=== PATIENT | male | born 1945 | race Caucasian/White ===

== ENCOUNTER 2021-08-09 12:05 | Inpatient (IN) | payer OTHER ==
--- OUTSIDE RECORDS SUMMARY | 2021-08-09 12:10 | XMS REPORT | Continuity of Care Document ---
:1945 Author Organization [facility] t Address [address] [place] [address] Care Team Providers Name Role Phone RE JAFFE Primary Care Physician Unavailable DRAIN LAYER, STAFF Attending Clinician Unavailable Levon GREEN Attending Clinician Unavailable RE JAFFE Attending Clinician Unavailable JON Attending Clinician Unavailable Danna Attending Clinician Unavailable SALVADOR Attending Clinician Unavailable DR ADEEL Attending Clinician Unavailable JON Admitting Clinician Unavailable Danna Admitting Clinician Unavailable DR ADEEL Admitting Clinician Unavailable Payers Payer Name Policy Type Policy Number Effective Date Expiration Date S keke [id number] 1959 00:00:00 [id number] 1959 00:00:00 [id number] Advance Directives Directive Decision Effective Date Termination Date Comments Sour ce Yes N/A [facility] Problems Condition Condition Condition Status Onset Resolution Last Treating Co mments Source Name Details Category Date Date Treatment Clinician Date 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 Spinal Problem Active [facility] stenosis S of lumbar Health region Postoperat Problem Active ARLEY TU alanna wound S infection Health Infection Problem Active MARILIN U following S procedure Health 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 Health (CVA) Hypertensi Problem Inactiv CH[facility] T[facility]IKA on e S Health Allergies, Adverse Reactions, Alerts Allergy Allergy Status Severity Reaction(s) Onset Inactive Treating Comm ents Source Name Type Date Date Clinician No Known DA Active U 2018-06 [facility] 0[facility] [place] NO KNOWN Allergy Active Unknown MARILIN U ALLERGY to 4-04 S substanc 00:00: Health e 00 No Known DA Active U 2005-06 [facility] Contrast [place] [facility] 00:[facility]: [facility] No Known DA Active U 2005-06 [facility] [place] [facility] 00:[facility]: [facility] No Known DA Active U 2005-06 [facility] Food [place] [facility]ergie 00:00: [facility] No Known DA Active U 2005-06 [facility] Other [place] [facility]ergie 00:00: [facility]ope [facility] No Known DA Active U [facility] 11-21 [place] [facility] 00:[facility]: [facility]ope [facility] dic Hospita l NO KNOWN Drug Active [facility]ERGIE Class [facility] No Known DA Active [facility] (LUF/LI V/SA) Social History Social Habit Start Date Stop Date Quantity Comments Source Sex Ass[birth year] At [birth year] Male [facility] 00:00:00 00:00:00 Smoking Status Start Date Stop Date Source Smokes tobacco daily (finding) 2019-10-25 22:23:00 [facility] [employer] Medications Ordered Filled Start Stop Current Ordering Indication Dosage Frequency Signature Comments Components Source Medication Medication Date Date Medication? Clinician (SIG) Name Name Gabapentin No 600mg Bedtime (Neurontin) S 600 Mg TAB Health Methocarbam No 750mg Three MARILIN U ol Times A S (Robaxin) Day as Health 750 Mg needed for TABLET Spasms Metoprolol No 25mg Bedtime MARILIN U Succinate S (Toprol Xl) Health 25 Mg TABSR Pravastatin No 20mg Every [facility] Sodium Evening S (Pravachol) Health 20 Mg TAB Qysimia No 1 Daily for [facility]RI[facility]U Cardiologi S st Diet Health Pill Vital Signs Vital Name Observation Time Observation Value Comments Source Weight 2019-10-27 00:00:00 110.3 KG Body Temperature 2019-10-26 01:18:00 98.4 [degF] [employer] Heart Rate 2019-10-26 01:18:00 65 /min [employer] Respiratory rate 2019-10-26 01:18:00 18 /min [employer] BP Systolic 2019-10-26 01:18:00 138 mm[Hg] [facility] BP Diastolic 2019-10-26 01:18:00 74 mm[Hg] [facility] Heart Rate 2019-10-26 00:48:00 65 /min [facility] Respiratory rate 2019-10-26 00:48:00 18 /min [employer] BP Systolic 2019-10-26 00:48:00 138 mm[Hg] [facility] BP Diastolic 2019-10-26 00:48:00 74 mm[Hg] [facility] Weight 2019-10-25 21:59:00 252.25 [lb_av] [facility] BMI (Body Mass Index) 2019-10-25 21:59:00 37.3 kg/m2 [facility] Procedures Procedure Date / Time Performed Performing Clinician [facility] e ECG (electrocardiogram) 2019-10-25 00:00:00 [employer] Computed tomography of 2019-10-25 00:00:00 [facility] head or brain without contrast X-ray of chest, single 2019-10-25 00:00:00 [facility] view Encounters Start End Encounter Admission Attending Care Care Encounter Source Date/Time Date/Time Type Type Clinicians Facility Department ID 2020-03-12 Inpatient EL DRAIN LAYER CYNTHIA MARIE [id number] [facility] 12:30:00 NON [id number] S [facility] 2019-10-25 Inpatient PETER CYNTHIA MARIE [id number] [facility] 21:50:00 ALLIE [id number] S Health 2021-08-03 2021-08-03 Outpatient EL LDCYNTHIA [id number] [facility] 08:52:00 08:52:00 SHEWANA [id number] [facility] 2019-10-26 2019-10-26 Outpatient 2 TAMIKA WEBB OBT [id number] 12:51:00 12:51:00 KALIN aquino (NGUYEN/JOHNNIE V/SA) 2019-10-25 2019-10-26 Departed KAYLIN Orantes [id number] [facility] 21:50:00 01:18:[address] 2019-10-22 2019-10-22 Outpatient Raju_P MMG MMG [id number] [place] 04:59:00 04:59:00 [facility] 2019-09-17 2019-09-17 Outpatient R SALVADOR, [facility] [id number] Q-20 Univers 10:00:00 10:00:00 CRISTINA [id number] ity [facility] 2010-03-08 2010-03-[address] [id number] 09:52:00 23:59:00 CRISTINA aquino (LUF/LI V/SA) Results Test Description Test Time Test Comments Results Result Comments Source [facility] 2019-10-27 05:16:00 Test Item Value Reference Range Interpretation Comme nts Sodium (test code = NA) 138 mmol/l 137-145 Potassium (test code = K) 4.6 mmol/l 3.5-5.1 Chloride (test code = CL) 106 mmol/l 98-107 Calcium (test code = 8.1 mg/dl 8.5-10.1 L CALC) CO2 (test code = CO2) 26 mmol/l 21-32 Glucose (test code = GLU) 153 mg/dl 74-106 H BUN (test code = BUN) 17.0 mg/dl 7.0-18.0 Creatinine (test code = 1.2 mg/dl 0.5-1.3 CREA) EGFR if >60 mL/min/1.73m\\S\\2 (test code = EGFRAA) EGFR if Non- >60 mL/min/1.73m\\S\\2 Estimated Glomerular Algerian (test code = Filtra tion Rate (eGFR) EGFRNA) Reference Inter vals Decision Points for 18 y ears and older and avera ge body mass: >= 60 Does not exclu de kidney disease. 30 - 5 9 Suggests modera te chronic kidney disease and indicates the need for fu rther investigation i ncluding assessment of p roteinuria and ca rdiovascular factors. < 30 Usually indicat es a need for referral for as sessment and management of c hronic kidney failure. CORONARY [id number] 05:16:00 Test Item Value Reference Range Interpretation Comments Triglycerides (test 80 mg/dl 0-149 Trig. In terpretation code = TRIG) Guide: Nor mal: < 150 mg/dl Borderline High : 150 - 199 mg/dl High: 200 - 499 mg/dl Very High: >= 5 00 mg/dl Cholesterol (test code 130 mg/dl 0-200 = CHOL) HDL (test code = HDL) 42 mg/dl 35-86 dLDL (test code = 80 mg/dl 0-99 Direct LDL DILDL) Intrepretations : Optimal: <100 mg/dl Suspect: 100 - 129 mg/dl Border line: 130 - 159 mg/dl High: 160 - 189 mg/dl Very High: >1 90 mg/dl Risk Factor (test code 3.1 0.0-5.0 Risk Factor = RFACT) Men Women R isk Factor 3.4 3.3 1/ 2 Average 5.0 4.4 Average 9.6 7.1 2X Average 24.0 11.0 3X Average vLDL (test code = 16 mg/dl 20-50 L VLDL) CBC (HEMOGRAM ONLY)2019-10-27 04:28:00 Test Item Value Reference Range Interpretation Comments WBC (test code = 7.76 10\\S\\3/ul 4.80-10.80 WBC) RBC (test code = 5.00 10\\S\\6/ul 4.70-6.10 RBC) Hemoglobin (test 16.0 gm/dl 14.0-18.0 code = HGB) Hematocrit (test 48.7 % 42.0-50.0 code = HCT) MCV (test code = 97.4 fL 80.0-94.0 H MCV) MCH (test code = 32.0 pg 27.0-31.0 H MCH) MCHC (test code = 32.9 gm/dl 33.0-37.0 L MCHC) RDW (test code = 15.4 % 11.5-14.5 H RDWVC) Platelet (test code 193 10\\S\\3/ul 130-400 = PLT) MPV (test code = 10.9 fL 7.4-10.4 A "NOT MEASUR ED" MPV) RESULTS ARE DIS PLAYED WHEN THE INSTRU MENT HAS A SUPPRESSE D OR UNREPORTABLE RE SULT. THIS WILL MOST OFTEN HAPPEN WITH THE MPV WHEN THERE IS A N ABNORMAL PLATEL ET DISTRIBUTION DU E TO A CRITICAL LOW VA LUE OR PLATELET CLUMPI NG. THE RDW MAY BE SUPPRESSED IF T HERE ARE MULTIPLE PE AKS PRESENT ON THE RBC HISTOGRAM. IN THIS CASE, A MANUAL REVIEW OF THE SLIDE WI LL BE PERFORMED, AND RBC MORPHOLOGY WILL BE NOTED ON THE RE PORT. MRA HEAD W/O [id number] 10:20:07If patient is claustrophobic, contact ordering physician for additional instructions.Procedure: MRA HEAD W/O CONTRASTOrder Date: 10/26/2019 3:12 AMOrdering Provider: [facility] Indication: [id number]: Cerebrovascular accidentComparison: Carotid ultrasound 10/26/2019Technique:3-D [id number]-si-[id number] MRA of the brain was obtained without theadministration of IV contrast.Findings:The right petrous, cavernous, and supraclinoid internal carotid artery segmentsare patent. There is loss of flow related signal seen throughout the leftinternal carotid artery compatible with occlusion.There is reconstitution ofthe ak chin of [place]. Left type SCENE PAINTER circulation is noted.The anterior cerebral arteries are patent without stenosis.The middle cerebral arteries are patent without stenosis.The posterior cerebral arteries are patent without stenosis.The distal vertebral and basilar arteries have a normal appearance.The superior cerebellar arteries are patent without stenosis.There is no intracranial aneurysm. There is no arteriovenous shunting.Impression:1. 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 Otherwise, unremarkableintracranial MR angiogram.This final report was elec tronically signed by Dr Brooklyn Chavez MD 10/26/201910:13 AMDictated By: BROOKLYN CHAVEZDate: 10/26/2019 10:13MRI BRAIN W/O [id number] 10:12:46If patient is claustrophobic, contact ordering physician for additional instructions.Procedure: MRI BRAIN W/O CONTRASTOrder Date: 10/26/2019 3:12 AMOrdering Provider: KALIN Pinto Indication: Left-sided facial weakness, CVAComparison: NoneTechnique: Multiplanar MRI of the brain was obtained without the administrationof IV contrast.Findings:T2/FLAIR signal abnormality seen in the bihemispheric white matter, nonspecificyet most likely microvascular ischemic change. There is also global parenchymalvolume loss.Ventricular size and configuration are normal. There is no midlineshift orhydrocephalus.There is no evidence of an acute infarct. There is no parenchymal hemorrhage.The pituitary gland is normal in size. There are no pineal masses.Loss of the left internal carotid artery flow void compatible with occlusion.The foramen magnum is normal.There is normal signal within the paranasal sinuses.The orbits are intact.IMPRESSION:1. Nonacute MRI of the brain without the administration of IV contrast.2. Microvascular ischemic change with global parenchymal volume loss.3. Loss of normal flow void seen within the distal left internal carotid or truesuggestive of occlusion.This final report was electronically signed by Dr Brooklyn Chavez MD 10/26/201910:06 AMDictated By: BROOKLYN CHAVEZDate: 10/26/2019 10:06US CAROTID BILAT [id number] 09:55:54Procedure: US CAROTID BILAT DopplerOrder Date: 10/26/2019 3:13 AMOrdering Provider: KALIN COLINlinical Indication: Left ICA occlusion. CVAComparison: NoneTECHNIQUE : Real-time cerebrovascular ultrasonography was obtained from sternalnotch to the angle of the mandible bilaterally utilizing osuna scale, color flowand spectral Doppler analysis. Systolic velocity ratios were calculated forinternal carotid artery to common carotid artery bilaterally.FINDINGS:RIGHT CAROTID BIFURCATION: Mild atherosclerotic plaque. Peak systolic andend-diastolic velocities in the right internal carotid artery are withinnormallimits. Internal carotid/common carotid ratio is within normal limits. Rightvertebral flow is antegrade.LEFT CAROTID BIFURCATION: Extensive atherosclerotic plaque. Occlusion of theleft ICA. Left vertebral flow is antegrade.IMPRESSION:1. Extensive atherosclerotic plaque at the left carotid bifurcation withcomplete occlusion of the left ICA. Mild atherosclerotic plaque in right carotidbulb and ICA origin.2. There is no significant stenosis (16- 49%) at right ICA origin.3. Bilateral antegrade vertebral artery flow.This final report was electronically signed by Dr Brooklyn Chavez MD 10/26/20199:49 AMDictated By: BROOKLYN CHAVEZDate: 10/26/2019 09:49GLYCOSALATED HEMOGLOBIN 2019-10-26 06:08:00 Test Item Value Reference Range Interpretation Comments Hemoglobin A1C (test 6.0 % 4.2-6.3 A code = GLYCO) Mean Plasma Glucose 136 mg/dl 90-180 WHEN BRIAN T RESULTS FOR (test code = MPG) A1C EXCEED 14.0, THE LINEAR LIMIT OF THE INSTRUMENT, THE CALCULATED RESU LT FOR THE MEAN GLUCOS E IS NOT RELIABLE. CORONARY [id number] 05:28:00 Test Item Value Reference Range Interpretation Comments Triglycerides (test 81 mg/dl 0-149 Trig. In terpretation code = TRIG) Guide: Nor mal: < 150 mg/dl Borderline High : 150 - 199 mg/dl High: 200 - 499 mg/dl Very High: >= 5 00 mg/dl Cholesterol (test code 117 mg/dl 0-200 = CHOL) HDL (test code = HDL) 38 mg/dl 35-86 dLDL (test code = 69 mg/dl 0-99 Direct LDL DILDL) Intrepretations : Optimal: <100 mg/dl Suspect: 100 - 129 mg/dl Border line: 130 - 159 mg/dl High: 160 - 189 mg/dl Very High: >1 90 mg/dl Risk Factor (test code 3.1 0.0-5.0 Risk Factor = RFACT) Men Women R isk Factor 3.4 3.3 1/ 2 Average 5.0 4.4 Average 9.6 7.1 2X Average 24.0 11.0 3X Average vLDL (test code = 16 mg/dl 20-50 L VLDL) [id number] 05:28:00 Test Item Value Reference Range Interpretation Comments Sodium (test code = 138 mmol/l 137-145 NA) Potassium (test 3.7 mmol/l 3.5-5.1 code = K) Chloride (test code 107 mmol/l 98-107 = CL) Calcium (test code 7.8 mg/dl 8.5-10.1 L = CALC) CO2 (test code = 26 mmol/l 21-32 CO2) Glucose (test code 108 mg/dl 74-106 H = GLU) BUN (test code = 17.0 mg/dl 7.0-18.0 BUN) Creatinine (test 1.1 mg/dl 0.5-1.3 code = CREA) T Protein (test 6.5 gm/dl 6.4-8.2 code = TP) Albumin (test code 3.5 gm/dl 3.4-5.0 = ALB) A/G Ratio (test 1.2 % 1.1-2.2 code = AGRAT) AST (SGOT) (test 14 U/L 15-37 L code = AST) ALT (SGPT) (test 21 U/L 13-61 code = ALT) Alkaline Phos (test 77 U/L 45-117 code = ALKP) Total Bilirubin 0.4 mg/dl 0.2-1.0 (test code = TBIL) Globulin (test code 3.0 gm/dl 2.3-3.5 = GLOBU) Calcium, Corrected 8.2 mg/dl 8.4-10.2 L Various f ormulas exist (test code = for corrected s rina CALCCORR) calcium results , each yielding differ ent values. This corrected resul t was based on the fo rmula: Corrected Calci um = SerumCalcium + [0.8 * ( 4 - SerumAlbu min)] EGFR if >60 Algerian (test code mL/min/1.73m\\ = EGFRAA) S\\2 EGFR if Non- >60 Estimate d Glomerular Algerian (test code mL/min/1.73m\\ Filtrat ion Rate (eGFR) = EGFRNA) S\\2 Reference Inter vals Decision Points for 18 years and older and average body ma ss: >= 60 Does not exc lude kidney disease. 30 - 59 Suggests modera te chronic kidney disease and indicat es the need for furthe r investigation including asses sment of proteinuria and cardiovascular factors. < 30 Usually in dicates a need for refe rral for assessment and management of c hronic kidney failure. CBC WITH AUTO [id number] 04:51:00 Test Item Value Reference Range Interpretation Comments WBC (test code = 5.52 10\\S\\3/ul 4.80-10.80 WBC) RBC (test code = 4.69 10\\S\\6/ul 4.70-6.10 L RBC) Hemoglobin (test 14.9 gm/dl 14.0-18.0 code = HGB) Hematocrit (test 46.0 % 42.0-50.0 code = HCT) MCV (test code = 98.1 fL 80.0-94.0 H MCV) MCH (test code = 31.8 pg 27.0-31.0 H MCH) MCHC (test code = 32.4 gm/dl 33.0-37.0 L MCHC) RDW (test code = 15.8 % 11.5-14.5 H RDWVC) Platelet (test code 166 10\\S\\3/ul 130-400 = PLT) MPV (test code = 11.6 fL 7.4-10.4 A "NOT MEASUR ED" MPV) RESULTS ARE DIS PLAYED WHEN THE INSTRU MENT HAS A SUPPRESSE D OR UNREPORTABLE RE SULT. THIS WILL MOST OFTEN HAPPEN WITH THE MPV WHEN THERE IS A N ABNORMAL PLATEL ET DISTRIBUTION DU E TO A CRITICAL LOW VA LUE OR PLATELET CLUMPI NG. THE RDW MAY BE SUPPRESSED IF T HERE ARE MULTIPLE PE AKS PRESENT ON THE RBC HISTOGRAM. IN THIS CASE, A MANUAL REVIEW OF THE SLIDE WI LL BE PERFORMED, AND RBC MORPHOLOGY WILL BE NOTED ON THE RE PORT. NE% (test code = 59.9 % 42.0-75.0 NE) LY% (test code = 26.4 % 13.0-42.0 LY) MO% (test code = 8.3 % 4.0-14.0 MO) EO% (test code = 4.2 % 1.0-5.0 EO) BA% (test code = 0.7 % 0.0-3.0 BA) IG% (test code = 0.5 % 0.0-0.4 H IG%) Automated blood basophil count as percentage of total [id number] 22:00:00 Test Item Value Reference Range Interpretation Comments Basophils (%) (Auto) (test code = 0 % 0-1 706-2) [facility] (number/volume)2019-10-25 22:00:00 Test Item Value Reference Range Interpretation Comments Neutrophils # (Auto) (test code = 4.1 10*3/uL 1.3-6.7 751-8) [facility] count (number/volume)2019-10-25 22:00:00 Test Item Value Reference Range Interpretation Comments Lymphocytes # (Auto) (test code = 1.5 10*3/uL 1.4-4.1 731-0) [facility] monocytes automated count (number/volume)2019-10-25 22:00:00 Test Item Value Reference Range Interpretation Comments Monocytes # (Auto) (test code = 0.5 10*3/uL 0-1.3 742-7) [facility] eosinophil [id number] 22:00:00 Test Item Value Reference Range Interpretation Comments Eosinophils # (Auto) (test code = 0.2 10*3/uL 0-0.8 711-2) [facility] HealthAutomated blood basophil count (number/volume)2019-10-25 22:00:00 Test Item Value Reference Range Interpretation Comments Basophils # (Auto) (test code = 0.0 10*3/uL 0-0.1 704-7) [facility] comment [id number] 22:00:00 Test Item Value Reference Range Interpretation Comments Manual Differential (test code = Not Ind 8265-1) [facility] HealthProthrombin time (PT) in platelet poor [id number] 22:00:00 Test Item Value Reference Range Interpretation Comments Prothrombin Time (test code = 5902-2) 12.0 s 9.4-12.5 [facility] HealthINR in Platelet poor plasma by Coagulation [id number] 22:00:00 Test Item Value Reference Range Interpretation Comments Prothromb Time International 1.0 {ratio} 0.8-1.2 Ratio (test code = 6301-6) [facility] HealthPlasma partial thromboplastin time (PTT)2019-10-25 22:00:00 Test Item Value Reference Range Interpretation Comments Activated Partial Thromboplast Time 31.2 s 25.1-36.5 (test code = 14617-3) [facility] HealthSerum or plasma sodium measurement (moles/volume)2019-10-25 22:00:00 Test Item Value Reference Range Interpretation Comments Sodium Level (test code = 2951-2) 140 mmol/L 136-145 [facility] HealthSerum or plasma potassium measurement (moles/volume)2019-10-25 22:00:00 Test Item Value Reference Range Interpretation Comments Potassium Level (test code = 3.9 mmol/L 3.5-5.1 2823-3) [facility] HealthSerum or plasma chloride measurement (moles/volume)2019-10-25 22:00:00 Test Item Value Reference Range Interpretation Comments Chloride Level (test code = 106 mmol/L 98-107 5-0) [facility] HealthSerum or plasma total carbon dioxide measurement (moles/volume) 2019-10-25 22:00:00 Test Item Value Reference Range Interpretation Comments Carbon Dioxide Level (test code = 24 mmol/L -2027-) [facility] HealthSerum or plasma anion gap determination (moles/volume)2019-10-25 22:00:00 Test Item Value Reference Range Interpretation Comments Anion Gap (test code = 55851-6) 14 8-18 [facility] HealthSerum or plasma urea nitrogen measurement (mass/volume)2019-10-25 22:00:00 Test Item Value Reference Range Interpretation Comments Blood Urea Nitrogen (test code = 17 mg/dL 02-04 3094-0) [facility] HealthSerum or plasma creatinine measurement (mass/volume)2019-10-25 22:00:00 Test Item Value Reference Range Interpretation Comments Creatinine (test code = 2160-0) 1.2 mg/dL 0.7-1.3 [facility] HealthGFR estimate [id number] 22:00:00 Test Item Value Reference Range Interpretation Comments Estimat Glomerular Filtration Rate 63 50-100 (test code = 21405-5) [facility] HealthSerum or plasma urea nitrogen/creatinine mass [id number] 22:00:00 Test Item Value Reference Range Interpretation Comments BUN/Creatinine Ratio (test code = 14 3097-3) [facility] HealthSerum or plasma glucose measurement (mass/volume)2019-10-25 22:00:00 Test Item Value Reference Range Interpretation Comments Glucose Level (test code = 2345-7) 140 mg/dL 60-100 [facility] HealthOsmolality of Serum or Plasma by [id number] 22:00:00 Test Item Value Reference Range Interpretation Comments Calculated Osmolality (test code 283 mosm/kg = 27307-6) [facility] HealthSerum or plasma calcium measurement (mass/volume)2019-10-25 22:00:00 Test Item Value Reference Range Interpretation Comments Calcium Level (test code = 77530-1) 8.8 mg/dL 8.8-10.0 [facility] HealthSerum or plasma total bilirubin measurement (mass/volume) 2019-10-25 22:00:00 Test Item Value Reference Range Interpretation Comments Total Bilirubin (test code = 0.4 mg/dL 0.2-1.2 1974-2) [facility] HealthSerum or plasma aspartate aminotransferase measurement (enzymatic activity/volume)2019-10-25 22:00:00 Test Item Value Reference Range Interpretation Comments Aspartate Amino Transf (AST/SGOT) 15 U/L 5-34 (test code = 1920-8) [facility] HealthSerum or plasma alanine aminotransferase measurement (enzymatic activity/volume)2019-10-25 22:00:00 Test Item Value Reference Range Interpretation Comments Alanine Aminotransferase (ALT/SGPT) 17 U/L 0-55 (test code = 1742-6) [facility] HealthSerum or plasma protein measurement (mass/volume)2019-10-25 22:00:00 Test Item Value Reference Range Interpretation Comments Total Protein (test code = 2885-2) 6.9 g/dL 5.8-7.6 [facility] HealthSerum or plasma albumin measurement (mass/volume)2019-10-25 22:00:00 Test Item Value Reference Range Interpretation Comments Albumin (test code = 1751-7) 4.1 g/dL 3.2-4.7 [facility] HealthSerum globulin measurement by calculation (mass/volume)2019-10-25 22:00:00 Test Item Value Reference Range Interpretation Comments Globulin (test code = 88993-4) 2.8 g/dL [facility] HealthSerum or plasma albumin/globulin mass [id number] 22:00:00 Test Item Value Reference Range Interpretation Comments Albumin/Globulin Ratio (test code = 1.5 1759-0) [email or web address] HealthSerum or plasma alkaline phosphatase measurement (enzymatic activity/volume)2019-10-25 22:00:00 Test Item Value Reference Range Interpretation Comments Alkaline Phosphatase (test code = 76 U/L 40-150 6768-6) [facility] HealthCreatine kinase ser/[id number] 22:00:00 Test Item Value Reference Range Interpretation Comments Total Creatine Kinase (test code = 187 U/L 30-200 2157-6) [facility] [[email or web address] HealthSerum or plasma cardiac troponin I measurement (mass/volume) 2019-10-25 22:00:00 Test Item Value Reference Range Interpretation Comments Troponin I (test code = 07961-6) 0.01 ng/mL 0.00-0.03 [facility] leukocyte count (number/volume)2019-10-25 22:00:00 Test Item Value Reference Range Interpretation Comments White Blood Count (test code = 6.4 10*3/uL 4.5-11.5 6690-2) [facility] erythrocytes automated count (number/volume)2019-10-25 22:00:00 Test Item Value Reference Range Interpretation Comments Red Blood Count (test code = 4.90 10*6/uL 4.4-6.2 789-8) [facility] HealthBlood hemoglobin measurement (mass/volume)2019-10-25 22:00:00 Test Item Value Reference Range Interpretation Comments Hemoglobin (test code = 718-7) 15.6 g/dL 13.0-17.5 [facility] HealthAutomated blood hematocrit (volume fraction)2019-10-25 22:00:00 Test Item Value Reference Range Interpretation Comments Hematocrit (test code = 4544-3) 47.1 % 39.0-52.5 [facility] HealthAutomated erythrocyte mean corpuscular volume (MCV) measurement 2019-10-25 22:00:00 Test Item Value Reference Range Interpretation Comments Mean Corpuscular Volume (test code = 96.1 fL 80-94 787-2) [facility] HealthAutomated erythrocyte mean corpuscular hemoglobin (mass per erythrocyte)2019-10-25 22:00:00 Test Item Value Reference Range Interpretation Comments Mean Corpuscular Hemoglobin (test 31.8 pg 27.0-33.0 code = 785-6) [facility]ated erythrocyte mean corpuscular hemoglobin concentration measurement (mass/vjw1603-12-64 22:00:00 Test Item Value Reference Range Interpretation Comments Mean Corpuscular Hemoglobin Concent 33.1 g/dL 33.0-37.0 (test code = 786-4) [facility]ated erythrocyte distribution width [id number] 22:00:00 Test Item Value Reference Range Interpretation Comments Red Cell Distribution Width (test code 16.7 % 10.7-14.5 = 788-0) [facility]Automated blood platelet count (count/volume)2019-10-25 22:00:00 Test Item Value Reference Range Interpretation Comments Platelet Count (test code = 164 10*3/uL 150-450 777-3) [facility]Automated blood platelet mean volume [id number] 22:00:00 Test Item Value Reference Range Interpretation Comments Mean Platelet Volume (test code = 11.3 fL 5.7-10.7 74353-1) [facility]Automated blood neutrophil count as percentage of total qebudabbzu5715-53-65 22:00:00 Test Item Value Reference Range Interpretation Comments Neutrophils (%) (Auto) (test code = 64 % 47-75 770-8) [facility] blood lymphocyte count as percentage of total qwsqajnsgw6624-35-36 22:00:00 Test Item Value Reference Range Interpretation Comments Lymphocytes (%) (Auto) (test code = 24 % 25-44 736-9) [facility]ated blood monocyte count as percentage of total leukocytes 2019-10-25 22:00:00 Test Item Value Reference Range Interpretation Comments Monocytes (%) (Auto) (test code = 8 % 3-10 5905-5) [facility]Automated blood eosinophil count as percentage of total qtkenhhxfh0258-98-30 22:00:00 Test Item Value Reference Range Interpretation Comments Eosinophils (%) (Auto) (test code = 4 % 0-7 713-8) [facility] specimen collection [id number] 00:22:00 Test Item Value Reference Range Interpretation Comments Urine Source (test code = 20291-6) URINE [facility] HealthColor of Urine by [id number] 00:22:00 Test Item Value Reference Range Interpretation Comments Urine Color (test code = 04256-0) Lt Yellow Yel-Soila * [facility] HealthUrine clarity [id number] 00:22:00 Test Item Value Reference Range Interpretation Comments Urine Appearance (test code = 68941-6) Clear Clear * [facility] HealthUrine pH measurement by automated test [id number] 00:22:00 Test Item Value Reference Range Interpretation Comments Urine pH (test code = 53744-7) 5.5 5.0-8.0 [facility] HealthSpecific gravity of Urine by Automated test [id number] 00:22:00 Test Item Value Reference Range Interpretation Comments Urine Specific [place] (test code = 1.020 1.005-1.030 13194-9) [facility] HealthUrine protein measurement by automated test strip (mass/volume) 2019-10-25 00:22:00 Test Item Value Reference Range Interpretation Comments Urine Protein (test code = 53545-2) 10 mg/dL Negative * [facility] HealthUrine glucose measurement by automated test strip (mass/volume) 2019-10-25 00:22:00 Test Item Value Reference Range Interpretation Comments Urine Glucose (UA) (test code Negative mg/dL Negative * = 78005-5) [facility]rine ketones measurement by automated test strip (mass/volume) 2019-10-25 00:22:00 Test Item Value Reference Range Interpretation Comments Urine Ketones (test code = Trace mg/dL Negative * 04315-7) [facility]rine erythrocytes count by automated test strip (number/volume) 2019-10-25 00:22:00 Test Item Value Reference Range Interpretation Comments Urine Occult Blood (test code = Trace Negative * 21980-1) [facility] HealthUrine nitrite detection by automated test [id number] 00:22:00 Test Item Value Reference Range Interpretation Comments Urine Nitrite (test code = 64026-4) Negative Negative [facility] HealthUrine total bilirubin measurement by automated test strip (mass/volume)2019-10-25 00:22:00 Test Item Value Reference Range Interpretation Comments Urine Bilirubin (test code = Negative mg/dL Negative 45120-8) [facility] urobilinogen measurement by automated test strip (mass/volume)2019-10-25 00:22:00 Test Item Value Reference Range Interpretation Comments Urine Urobilinogen (test code Negative mg/dL 0.0-1.0 = 12448-0) [facility] leukocytes count by automated test strip (number/volume) 2019-10-25 00:22:00 Test Item Value Reference Range Interpretation Comments Urine Leukocyte Esterase Negative {Maria Eugenia}/uL Negative (test code = 31796-2) [facility] HealthMicroscopic examination of [id number] 00:22:00 Test Item Value Reference Range Interpretation Comments Microscopic Urinalysis (T) (test code = ----- 77361-3) [facility] sediment erythrocyte count by microscopy (number/high power field)2019-10-25 00:22:00 Test Item Value Reference Range Interpretation Comments Urine RBC (test code = 32330-1) 0-2 /[HPF] 0-2 [facility]rine sediment leukocyte count by microscopy (number/high power field)2019-10-25 00:22:00 Test Item Value Reference Range Interpretation Comments Urine WBC (test code = 5821-4) 0-5 /[HPF] 0-5 [facility] HealthUrine sediment epithelial cell count by microscopy (number/high power field)2019-10-25 00:22:00 Test Item Value Reference Range Interpretation Comments Urine Epithelial Cells (test None Seen /[HPF] Few code = 5787-7) [facility] HealthUrine sediment crystal count by microscopy (number/high power field)2019-10-25 00:22:00 Test Item Value Reference Range Interpretation Comments Urine Crystals (test code = None Seen /[HPF] None * 29750-4) [facility] HealthUrine sediment bacteria count by microscopy (number/high power field)2019-10-25 00:22:00 Test Item Value Reference Range Interpretation Comments Urine Bacteria (test code = Few /[HPF] None 5769-5) [facility] HealthUrine sediment casts count by microscopy (number/low power field) 2019-10-25 00:22:00 Test Item Value Reference Range Interpretation Comments Urine Casts (test code = None Seen /[LPF] None * 9842-6) [facility] HealthYeast detection in urine sediment by light [id number] 00:22:00 Test Item Value Reference Range Interpretation Comments Urine Yeast (test code = None Seen /[HPF] None 47412-2) [facility] comment 00:22:00 Test Item Value Reference Range Interpretation Comments Urinalysis Comment (test * See_Comment [A utomated message] The code = 8262-8) system which generated this result tra nsmitted reference range : *. The reference range was not used to interpr et this result as normal/abnormal . [facility] [id number] 07:05:00 Test Item Value Reference Range Interpretation Comments HEMOGLOBIN (test code = HGB) 10.9 g/dL 10.2-14.9 N HEMATOCRIT (test code = HCT) 35.2 % 31.3-44.8 N HGB [id number] 07:05:00 Test Item Value Reference Range Interpretation Comments HEMOGLOBIN (test code = HGB) 10.9 g/dL 10.2-14.9 HEMATOCRIT (test code = HCT) 35.2 % 31.3-44.8 BASIC METABOLIC [id number] 09:17:00 Test Item Value Reference Range Interpretation Comments SODIUM (test code = 140 mEq/L 135-145 NA) POTASSIUM (test code = 4.4 mEq/L 3.5-5.0 K) CHLORIDE (test code = 106 mEq/L 100-115 CL) CARBON DIOXIDE (test 22 mEq/L 22-31 code = CO2) GLUCOSE (test code = 107 mg/dL 65-110 GLU) BLOOD UREA NITROGEN 25 mg/dL 7-18 H (test code = BUN) GLOMERULAR FILTRATION 59.0 ml/min >60 L Unit o f measure: RATE (test code = GFR) mL/mi n/1.73 [id number] Range:Healthy A dults >90 mL/min/1.73 m2 For Chronic Kidney Disease: St age II Mild Dec rease in GFR 6 0-90 Stage III Moderate Decrea se in GFR 30-59 Stage IV Se lanny Decrease in GFR 15-29 Stage V Kidney Failur e <15 CREATININE (test code 1.2 mg/dL 0.7-1.3 = CREAT) CALCIUM (test code = 6.8 mg/dL 8.4-10.2 L CA) BASIC METABOLIC [id number] 09:17:00 Test Item Value Reference Range Interpretation Comments SODIUM (test code = NA) 140 mEq/L 135-145 N POTASSIUM (test code = K) 4.4 mEq/L 3.5-5.0 N CHLORIDE (test code = CL) 106 mEq/L 100-115 N CARBON DIOXIDE (test code = CO2) 22 mEq/L 22-31 N GLUCOSE (test code = GLU) 107 mg/dL 65-110 N BLOOD UREA NITROGEN (test code = 25 mg/dL 7-18 H BUN) GLOMERULAR FILTRATION RATE (test 59 ml/min >60 L code = GFR) CREATININE (test code = CREAT) 1.2 mg/dL 0.7-1.3 N CALCIUM (test code = CA) 6.8 mg/dL 8.4-10.2 L HGB [id number] 06:47:00 Test Item Value Reference Range Interpretation Comments HEMOGLOBIN (test code = HGB) 10.6 g/dL 12-16 L HEMATOCRIT (test code = HCT) 32.7 % 37-47 L - XR SPINE 1 V SPEC [id number] 10:47:00 Patient Name: LAURYN MEJIA Unit No: [id number] EXAMS: CPT CODE: [id number] XR SPINE 1 V SPEC LEVEL 50481 INTRAOPERATIVE LATERAL LUMBAR SPINE Film 1. A surgical instrument is posterior to L3-4. Film 2. Anterior and posterior fusion has been performed from L3 to S1. at 1047 Reported and signed by: Tacos Amaral MD CC: Brigido Sanders M.D. Technologist: RT NEERU(R) Transcribed D/ (7272) MalissaJCL [facility] NAME: LAURYN MEJIA [address] [facility] PHYS: Shaquille Cisneros MD : 1945 AGE: 73 SEX: M [place] [address] LOC: Y.520 A PHONE #: [phone] EXAM DATE: 04/18/2019 STATUS: ADM IN FAX #: [phone] RAD #: [id number] D/C DT PAGE 1 Signed Report Patient Name: LAURYN MEJIA Unit No: [id number] EXAMS: CPT CODE: [id number] XR SPINE 1 V SPEC LEVEL 24923 <Continued> Orig Print D/T: S: 04/19/2019 (1050) [facility] NAME: LAURYN MEJIA [address] [facility] PHYS: Shaquille Cisneros MD : 1945 AGE: 73 SEX: M [place] [address] LOC: Y.520 A PHONE #: [phone] EXAM DATE: 04/18/2019 STATUS: ADM IN FAX #: [phone] RAD #: [id number] D/C DT PAGE 2 Signed Report- XR SPINE 1 V SPEC [id number] 10:47:00 Patient Name: LAURYN MEJIA Unit No: [id number] EXAMS: CPT CODE: [id number] XR SPINE 1 V SPEC LEVEL 02488 INTRAOPERATIVE LATERAL LUMBAR SPINE Film 1. A surgical instrument is posterior to L3-4. Film 2. Anterior and posterior fusion has been performed from L3 to S1. at 1047 Reported and signed by: Tacos Amaral MD CC: Brigido Sanders M.D. Technologist: RUMA SANTANA, RT(R) Transcribed D/ (1047) RudyL [facility] NAME: LAURYN MEJIA [address] [facility] PHYS: Shaquille Cisneros MD : 1945 AGE: 73 SEX: M [place], [place] [address] LOC: Y.520 A PHONE #: [phone] EXAM DATE: 04/18/2019 STATUS: ADM IN FAX #: [phone] RAD #: [id number] D/C DT PAGE 1 Signed Report Patient Name: LAURYN MEJIA Unit No: [id number] EXAMS: CPT CODE: [id number] XR SPINE 1 V SPEC LEVEL 30732 <Continued> Orig Print D/T: S: 04/19/2019 (1050) [facility] NAME: LAURYN MEJIA [address] [facility] PHYS: Shaquille Cisneros MD : 1945 AGE: 73 SEX: M [place] [address] LOC: Y.520 A PHONE #: [phone] EXAM DATE: 04/18/2019 STATUS: ADM IN FAX #: [phone] RAD #: [id number] D/C DT PAGE 2 Signed ReportBASI METABOLIC [id number] 06:39:00 Test Item Value Reference Range Interpretation Comments SODIUM (test code = 140 mmol/L 136-145 N NA) POTASSIUM (test code = 4.9 mmol/L 3.5-5.1 N K) CHLORIDE (test code = 106.0 mmol/L 98-107 N CL) CARBON DIOXIDE (test 25.0 mmol/L 21-32 N code = CO2) GLUCOSE (test code = 218 mg/dL 70-110 H GLU) BLOOD UREA NITROGEN 21 mg/dL 7-18 H (test code = BUN) GLOMERULAR FILTRATION 49.0 >60 Unit o f measure: RATE (test code = GFR) mL/mi n/1.73 [id number] Range:Healthy Adults >90 mL/min/1.73 m2 For Chronic Kidney Disease: St age II Mild Decrease in GFR 60-90 St age III Moderate Decrease in GFR 30-59 Stage IV Severe Decre ase in GFR 15- 29 Stage V Kidney Failure <15 CREATININE (test code 1.41 mg/dL 0.55-1.30 H = CREAT) CALCIUM (test code = 7.3 mg/dL 8.2-10.1 L CA) HGB [id number] 06:03:00 Test Item Value Reference Range Interpretation Comments HEMOGLOBIN (test code = HGB) 11.7 g/dL 12-16 L HEMATOCRIT (test code = HCT) 36.4 % 37-47 L
[2021-08-09 12:39] LABS: Absolute Lymphocytes (CBC) 0.7 K/uL (0.7-4.9); Hematocrit 47.6 % (39.6-49.0); Lymphocytes % 14.6 % (15.3-44.8); RBC Red Blood Cell Count 5.07 M/uL (4.33-5.43)
[2021-08-09 12:46] LABS: Protime INR 1.1
[2021-08-09 13:01] LABS: Albumin 3.6 g/dL (3.4-5.0); Bilirubin Direct 0.1 mg/dL (0-0.2); Bilirubin Total 0.6 mg/dL (0.2-1.0); Protein, Total 7.5 g/dL (6.4-8.2); Troponin High Sensitivity 15.8 pg/mL (<58.9)
[2021-08-09 13:02] LABS: Magnesium 2.5 mg/dL (1.8-2.4); Potassium 4.4 mmol/L (3.5-5.1)
--- NOTE | 2021-08-09 13:59 | RAD REPORT ---
EXAM DESCRIPTION: [place] Single View08/09/2021 12:52 pm CLINICAL HISTORY: Chest pain COMPARISON: none FINDINGS: The lungs appear clear of acute infiltrate. The heart is normal size IMPRESSION: No acute abnormalities displayed
[2021-08-09] MEDS ORDERED: PANTOPRAZOLE 40 MG INJ ONE (14:28)
[2021-08-09] MEDS ORDERED: ASPIRIN 81 MG CHEWABLE TABLET ONE (14:28)
[2021-08-09] MEDS ORDERED: ACETYLCYST 6,000 MG/30 ML VIAL ONE (14:32)
[2021-08-09] MEDS ORDERED: ENOXAPARIN 100 MG/ML SYR SQ ONE (14:33)
--- NOTE | 2021-08-09 14:34 | ER ---
Nurse's Notes [facility] Name: Salvatore Michelle Age: 75 yrs Sex: Male : 1945 Arrival Date: 08/09/2021 Time: 12:10 Bed 27 Private MD: Diagnosis: Chest pain, unspecified;Essential (primary) hypertension;Obesity, unspecified Presentation: 08/09 12:10 Chief complaint: Patient states: sudden onset of neck and chest pain while visiting [facility] family in hospital. Coronavirus screen: Vaccine status: Patient reports receiving the 2nd dose of the covid vaccine. Client denies travel out of the [place] in the last 14 days. Ebola Screen: Patient denies travel to an Ebola-affected area in the 21 days before illness onset. Initial Sepsis Screen: Does the patient meet any 2 criteria? No. Patient's initial sepsis screen is negative. Does the patient have a suspected source of infection? No. Patient's initial sepsis screen is negative. Risk Assessment: Do you want to hurt yourself or someone else? Patient reports no desire to harm self or others. Onset of symptoms was August 09, 2021. 12:10 Method Of Arrival: Wheelchair [facility] 12:10 Acuity: ANGELITO 2 [facility] Triage Assessment: 12:14 General: Appears in no apparent distress. Behavior is calm, cooperative. Pain: [facility] Complains of pain in right jaw and left jaw Pain radiates to mid-sternal area Pain currently is 4 out of 10 on a pain scale. Quality of pain is described as heavy, pressure, Pain began suddenly, Is intermittent. Historical: - Allergies: 12:13 No Known Allergies; [facility] - Home Meds: 15:43 metoprolol tartrate 25 mg Oral tab 1 tab 2 times per day [Active]; pravastatin 20 mg ss7 oral tab 1 tab once daily [Active]; gabapentin 600 mg oral tab 1 tab nightly [Active]; - PMHx: 12:13 Hypertensive disorder; [facility] - Immunization history:: Adult Immunizations up to date, Client reports receiving the 2nd dose of the Covid vaccine. - Social history:: Smoking status: Patient denies any tobacco usage or history of. Screenin:31 Abuse screen: Denies threats or abuse. Nutritional screening: No deficits noted. ss7 Tuberculosis screening: No symptoms or risk factors identified. Fall Risk IV access (20 points). Assessment: 12:31 General: Appears in no apparent distress. comfortable, Behavior is calm, cooperative, ss7 appropriate for age. Pain: Complains of pain in chest and neck. Pain:. Neuro: Level of Consciousness is awake, alert, obeys commands, Oriented to person, place, time, situation, Manhole Builder are equal bilaterally Moves all extremities. Cardiovascular: Heart tones S1 S2 Capillary refill < 3 seconds Rhythm is sinus arrythmia Chest pain. Respiratory: Breath sounds are clear bilaterally. GI: Abdomen is round Bowel sounds present X 4 quads. : No deficits noted. EENT: No deficits noted. Derm: No deficits noted. Musculoskeletal: No deficits noted. 13:21 Reassessment: Verbal permission to update family member, Indu Mckeon, on patient status. 7 Family member made aware of pt stable status and informed waiting on reassessment. Bloodwork as returned. SS. 14:38 Reassessment: Pt wheeled to Ct per radiology. ss7 15:34 Reassessment: Pt notified of need for ua specimen. Pt states he used the bathroom while ss7 in radiology. Will continue to monitor for specimen. . 20:05 Reassessment: Attempt to call report. On hold, Asked if Rn could call back at current [facility] extension. SS. 20:20 Reassessment: Attempt to call report. Rn in pt's room. SS. ss7 Vital Signs: 12:10 BP 174 / 85; Pulse 76; Resp 18; Temp 97.4(TE); Pulse Ox 99% on R/A; Weight 106.59 kg; jh6 Height 5 ft. 9 in. (175.26 cm); Pain 4/10; 13:00 BP 151 / 69; Pulse 76; Resp 18; Pulse Ox 99% on R/A; ss7 14:00 BP 157 / 57; Pulse 79; Resp 18; Pulse Ox 100% on R/A; ss7 15:44 BP 139 / 88; Pulse 78; Resp 18; Pulse Ox 99% on R/A; ss7 17:30 BP 145 / 59; Pulse 58; Resp 18; Pulse Ox 98% on R/A; ss7 19:00 BP 165 / 68; Pulse 59; Resp 18; Pulse Ox 98% on R/A; ss7 19:30 BP 136 / 64; Pulse 71; Resp 18; Pulse Ox 96% on R/A; ss7 21:29 BP 132 / 74; Pulse 58; Resp 20; Pulse Ox 96% on R/A; ll3 12:10 Body Mass Index 34.70 (106.59 kg, 175.26 cm) [facility] ED Course: 12:10 Patient arrived in ED. am2 12:13 Triage completed. [facility] 12:14 Arm band placed on left ankle. [facility] 12:16 Muna Murray, REY is Primary Nurse. ss7 12:21 Martinez Saeed MD is Attending Physician. [facility] 12:29 Inserted saline lock: 20 gauge in right antecubital area, using aseptic technique. eo2 Blood collected. 12:31 Patient has correct armband on for positive identification. Placed in gown. Bed in low ss7 position. Call light in reach. Side rails up X2. air sampling and monitoring on. Pulse ox on. NIBP on. Door closed. Lights dimmed. Warm blanket given. 12:31 Basic Metabolic Panel Sent. ss7 12:31 Basic Metabolic Panel Sent. ss7 12:31 CBC with Diff Sent. ss7 12:31 LFT's Sent. ss7 12:31 Magnesium Sent. ss7 12:31 NT PRO-BNP Sent. ss7 12:31 PT-INR Sent. ss7 12:31 Troponin HS Sent. ss7 12:31 No provider procedures requiring assistance completed. Patient maintains SpO2 7 saturation greater than 95% on room air. 12:51 XRAY Chest (1 view) In Process Unspecified. EDMS 14:32 Erlin Daley is Hospitalizing Provider. [facility] 14:42 CT Soft Tissue Neck W/contr In Process Unspecified. EDMS 15:16 US Carotid Artery Bilateral In Process Unspecified. EDMS 15:32 SARS-COV-2 RT PCR (Document "Date of Onset" if Symptomatic) Sent. ss7 19:18 Family member present with dinner. . ss7 21:29 Patient admitted, IV remains in place. No redness/swelling at site. 3 Administered Medications: 14:30 Drug: ProTONIX (pantoprazole) 40 mg Route: IVP; Site: right antecubital; ss7 15:33 Follow up: Response: No adverse reaction 7 14:34 Drug: Mucomyst - Acetylcysteine 600 mg Route: PO; ss7 15:33 Follow up: Response: No adverse reaction ss7 14:36 Drug: Lovenox (enoxaparin) 100 mg Route: Sub-Q; Site: right lower abdomen; ss7 15:33 Follow up: Response: No adverse reaction ss7 14:38 Drug: Aspirin Chewable Tablet 324 mg Route: PO; ss7 15:33 Follow up: Response: No adverse reaction ss7 Outcome: 14:34 Decision to Hospitalize by Provider. nanette 21:29 Admitted to Med/surg accompanied by nurse, via wheelchair, room 209, with chart, Report ll3 called to REY Pastor 21:29 Condition: stable 21:29 Instructed on the need for admit, Demonstrated understanding of instructions. 21:31 Patient left the ED. ll3 Signatures: Dispatcher [employer] EDMartinez Mendiola MD MD cha Moreno, Amanda am2 Loubet, Lynsea RN RN ll3 Adriane Simons RN RN jh6 Daniella Samson RN RN eo2 Muna Murray RN RN ss7
--- NOTE | 2021-08-09 14:35 | EDPHYS ---
Physician Documentation [facility] Name: Salvatore Michelle Age: 75 yrs Sex: Male : 1945 Arrival Date: 08/09/2021 Time: 12:10 Bed 27 Private MD: ED Physician Martinez Saeed HPI: 08/09 14:23 This 75 yrs old Male presents to ER via Wheelchair with complaints of Chest nanette Tightness, Neck Pain, <24hrs Old. 14:23 The patient or guardian reports chest pain that is located primarily in the anterior nanette chest wall, bilaterally, right supraclavicular area and left supraclavicular area. Onset: just prior to arrival, this morning. The pain does not radiate. Associated signs and symptoms: The patient has no apparent associated signs or symptoms. The chest pain is described as aching. Duration: The patient or guardian reports a single episode, that is still ongoing, but improving. Modifying factors: The symptoms are alleviated by nothing. the symptoms are aggravated by nothing. Severity of pain: At its worst the pain was mild moderate in the emergency department the pain is unchanged. The patient has not experienced similar symptoms in the past. Historical: - Allergies: 12:13 No Known Allergies; [facility] - Home Meds: 15:43 metoprolol tartrate 25 mg Oral tab 1 tab 2 times per day [Active]; pravastatin 20 mg ss7 oral tab 1 tab once daily [Active]; gabapentin 600 mg oral tab 1 tab nightly [Active]; - PMHx: 12:13 Hypertensive disorder; [facility] - Immunization history:: Adult Immunizations up to date, Client reports receiving the 2nd dose of the Covid vaccine. - Social history:: Smoking status: Patient denies any tobacco usage or history of. ROS: 14:24 Constitutional: Negative for fever, chills, and weight loss, Eyes: Negative for injury, nanette pain, redness, and discharge, ENT: Negative for injury, pain, and discharge, Cardiovascular: Negative for chest pain, palpitations, and edema, Respiratory: Negative for shortness of breath, cough, wheezing, and pleuritic chest pain, Abdomen/GI: Negative for abdominal pain, nausea, vomiting, diarrhea, and constipation, Back: Negative for injury and pain, : Negative for injury, bleeding, discharge, and swelling, MS/Extremity: Negative for injury and deformity, Skin: Negative for injury, rash, and discoloration, Neuro: Negative for headache, weakness, numbness, tingling, and seizure, Psych: Negative for depression, anxiety, suicide ideation, homicidal ideation, and hallucinations, Allergy/Immunology: Negative for hives, rash, and allergies, Endocrine: Negative for neck swelling, polydipsia, polyuria, polyphagia, and marked weight changes, Hematologic/Lymphatic: Negative for swollen nodes, abnormal bleeding, and unusual bruising. 14:24 Neck: Positive for pain at rest, Negative for mass, stiffness, swelling, swollen nodes, tenderness, bony tenderness, acute changes. Exam: 14:24 Constitutional: This is a well developed, well nourished patient who is awake, alert, nanette and in no acute distress. Head/Face: Normocephalic, atraumatic. Eyes: Pupils equal round and reactive to light, extra-ocular motions intact. Lids and lashes normal. Conjunctiva and sclera are non-icteric and not injected. Cornea within normal limits. Periorbital areas with no swelling, redness, or edema. ENT: Nares patent. No nasal discharge, no septal abnormalities noted. Tympanic membranes are normal and external auditory canals are clear. Oropharynx with no redness, swelling, or masses, exudates, or evidence of obstruction, uvula midline. Mucous membranes moist. Neck: Trachea midline, no thyromegaly or masses palpated, and no cervical lymphadenopathy. Supple, full range of motion without nuchal rigidity, or vertebral point tenderness. No Meningismus. Chest/axilla: Normal chest wall appearance and motion. Nontender with no deformity. No lesions are appreciated. Cardiovascular: Regular rate and rhythm with a normal S1 and S2. No gallops, murmurs, or rubs. Normal PMI, no JVD. No pulse deficits. Respiratory: Lungs have equal breath sounds bilaterally, clear to auscultation and percussion. No rales, rhonchi or wheezes noted. No increased work of breathing, no retractions or nasal flaring. Abdomen/GI: Soft, non-tender, with normal bowel sounds. No distension or tympany. No guarding or rebound. No evidence of tenderness throughout. Back: No spinal tenderness. No costovertebral tenderness. Full range of motion. Male : Normal genitalia with no discharge or lesions. Skin: Warm, dry with normal turgor. Normal color with no rashes, no lesions, and no evidence of cellulitis. MS/ Extremity: Pulses equal, no cyanosis. Neurovascular intact. Full, normal range of motion. Neuro: Awake and alert, GCS 15, oriented to person, place, time, and situation. Cranial nerves II-XII grossly intact. Motor strength 5/5 in all extremities. Sensory grossly intact. Cerebellar exam normal. Normal gait. Psych: Awake, alert, with orientation to person, place and time. Behavior, mood, and affect are within normal limits. 14:24 ECG was reviewed by the Attending Physician. Vital Signs: 12:10 BP 174 / 85; Pulse 76; Resp 18; Temp 97.4(TE); Pulse Ox 99% on R/A; Weight 106.59 kg; 6 Height 5 ft. 9 in. (175.26 cm); Pain 4/10; 13:00 BP 151 / 69; Pulse 76; Resp 18; Pulse Ox 99% on R/A; ss7 14:00 BP 157 / 57; Pulse 79; Resp 18; Pulse Ox 100% on R/A; ss7 15:44 BP 139 / 88; Pulse 78; Resp 18; Pulse Ox 99% on R/A; ss7 17:30 BP 145 / 59; Pulse 58; Resp 18; Pulse Ox 98% on R/A; ss7 19:00 BP 165 / 68; Pulse 59; Resp 18; Pulse Ox 98% on R/A; ss7 19:30 BP 136 / 64; Pulse 71; Resp 18; Pulse Ox 96% on R/A; ss7 21:29 BP 132 / 74; Pulse 58; Resp 20; Pulse Ox 96% on R/A; ll3 12:10 Body Mass Index 34.70 (106.59 kg, 175.26 cm) [facility] MDM: 12:21 Patient medically screened. nanette 14:26 Differential diagnosis: abnormal EKG, acute myocardial infarction, acute pericarditis, nanette chest wall pain, congestive heart failure cholecystitis, esophagitis, gastritis, herpes zoster, hiatal hernia, pancreatitis, pleurisy, pneumonia, stable angina, unstable angina. HEART Score: History: Slightly Suspicious (0), ECG: Normal (0), Age: > or = 65 years (2), Risk Factors: > or = 3 Risk factors for atherosclerotic disease (2), [Hypercholesterolemia] [Hypertension] [+ Family HX] [Obesity] Troponin: < or = 1 x Normal Limit (0). The patient was given aspirin in the Emergency Department. The patient's deep vein thrombosis risk score was calculated as follows: Total Score: 0. This patient was found to be at low risk for a deep vein thrombosis by using the Well's assessment criteria. The patient's pulmonary embolism risk score was calculated as follows: Total Score: 0-2 points. This patient was found to be at low risk for a pulmonary embolism by using the Well's assessment criteria. ANTOINETTE Risk Score: 1 - patient's age is greater or equal to 65 years, 1 - Three or more CAD risk factors, 1- Known CAD, TOTAL SCORE = 3. Data reviewed: vital signs, nurses notes, lab test result(s), cardiac enzymes, CPK, CK MB, troponin i, CBC, electrolytes, hepatic panel, EKG. Data interpreted: marking room supervisor: rate is 79 beats/min, rhythm is regular, Pulse oximetry: on room air is 100 %. Test interpretation: by ED physician or midlevel provider: ECG, plain radiologic studies. Counseling: I had a detailed discussion with the patient and/or guardian regarding: the historical points, exam findings, and any diagnostic results supporting the discharge/admit diagnosis, lab results, radiology results, the need for further work-up and treatment in the hospital. 08/09 12:24 Order name: Basic Metabolic Panel [facility] 08/09 12:24 Order name: CBC with Diff; Complete Time: 13:59 [facility] 08/09 12:24 Order name: LFT's; Complete Time: 13:59 [facility] 08/09 12:24 Order name: Magnesium; Complete Time: 13:59 [facility] 08/09 12:24 Order name: NT PRO-BNP; Complete Time: 13:59 [facility] 08/09 12:24 Order name: PT-INR; Complete Time: 13:59 [facility] 08/09 12:24 Order name: Troponin HS; Complete Time: 13:59 [facility] 08/09 12:24 Order name: XRAY Chest (1 view); Complete Time: 14:18 [facility] 08/09 12:24 Order name: Basic Metabolic Panel; Complete Time: 13:59 [facility] 08/09 14:22 Order name: Lipase; Complete Time: 17:11 [facility] 08/09 14:22 Order name: Lipid Profile; Complete Time: 17:11 [facility] 08/09 14:22 Order name: CT Soft Tissue Neck W/contr; Complete Time: 17:11 [facility] 08/09 14:45 Order name: SARS-COV-2 RT PCR (Document "Date of Onset" if Symptomatic); Complete Time: iw 17:08/09 18:29 Order name: Urine Dipstick-Ancillary [facility] 08/09 12:24 Order name: EKG; Complete Time: 12:24 [facility] 08/09 12:24 Order name: Cardiac monitoring; Complete Time: 12: [facility] 08/09 12:24 Order name: EKG - Nurse/Tech; Complete Time: : [facility] 08/09 12:24 Order name: IV Saline Lock; Complete Time: : [facility] 08/09 12:24 Order name: Labs collected and sent; Complete Time: 12: [facility] 08/09 12:24 Order name: O2 Per Protocol; Complete Time: : [facility] 08/09 12:24 Order name: O2 Sat Monitoring; Complete Time: 12: [facility] 08/09 14:22 Order name: Urine Dipstick-Ancillary (obtain specimen); Complete Time: 18:25 [facility] 08/09 14:22 Order name: US Carotid Artery Bilateral; Complete Time: 17:11 [facility] EC:24 Rate is 69 beats/min. Rhythm is regular. QRS [place] is Normal. ME interval is normal. QRS nanette interval is normal. QT interval is normal. No Q waves. T waves are Normal. No ST changes noted. Clinical impression: NSR w/ Non-specific ST/T Changes and No evidence of ischemia. Interpreted by me. Reviewed by me. Administered Medications: 14:30 Drug: ProTONIX (pantoprazole) 40 mg Route: IVP; Site: right antecubital; ss7 15:33 Follow up: Response: No adverse reaction ss7 14:34 Drug: Mucomyst - Acetylcysteine 600 mg Route: PO; ss7 15:33 Follow up: Response: No adverse reaction ss7 14:36 Drug: Lovenox (enoxaparin) 100 mg Route: Sub-Q; Site: right lower abdomen; ss7 15:33 Follow up: Response: No adverse reaction ss7 14:38 Drug: Aspirin Chewable Tablet 324 mg Route: PO; ss7 15:33 Follow up: Response: No adverse reaction ss7 Disposition Summary: 08/09/21 14:34 Hospitalization Ordered Hospitalization Status: Observation nanette Provider: Erlin Daley cha Condition: Fair nanette Problem: new nanette Symptoms: have improved nanette Bed/Room Type: Standard nanette Location: Telemetry/MedSurg (Inpatient)(08/09/21 19:59) mw Room Assignment: 209(08/09/21 19:59) mw Diagnosis - Chest pain, unspecified nanette - Essential (primary) hypertension nanette - Obesity, unspecified nanette Forms: - Medication Reconciliation Form nanette - SBAR form nanette Signatures: Dispatcher [employer] EDMS Kerry Noel Martha RN RN Martinez Peterson MD MD cha Hastedt, Jennifer, RN RN jh6 Mnua Murray RN RN ss7 Corrections: (The following items were deleted from the chart) 17:43 14:34 Telemetry/MedSurg (observation) nanette bd 17:43 14:34 nanette bd 19:59 17:43 [facility] ER HOLD bd mw 19:59 17:43 ERHOLD- bd mw
--- NOTE | 2021-08-09 15:07 | RAD REPORT ---
EXAM DESCRIPTION: CT - Soft Tissue Neck W/Contr - 08/09/2021 2:43 pm CLINICAL HISTORY: Neck pain COMPARISON: None. TECHNIQUE: Computed axial tomography of the neck was obtained. 50 cc Isovue 300 was administered in travenously. Coronal and sagittal reconstruction was performed. All CT scans are performed using dose optimization technique as appropriate and may include automated exposure control or mA/KV adjustment according to patient size. FINDINGS: The right aspect of the valleculae is not well distended. This probably is not significant . The pharynx, tongue base, larynx and subglottic trachea appear unremarkable The parotid, submandibular and thyroid glands appear unremarkable. No lymphadenopathy is seen Fluid within the sinuses and mastoids is not present IMPRESSION: No acute abnormality is displayed
--- NOTE | 2021-08-09 15:59 | RAD REPORT ---
EXAM DESCRIPTION: USCarotid Artery Bilateral08/09/2021 3:16 pm CLINICAL HISTORY: Dizziness and neck pain COMPARISON: None FINDINGS: The velocity of the right internal carotid artery equals 149 cm/sec. The right ICA/CCA rat io 1.9. Mild plaque is present within the carotid artery. The artery is tortuous Almost all of the internal carotid artery is occluded. Mild plaque left common carotid artery Mild plaque is present within the carotid arteries. 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 I suspect this is a chronic finding but should be compared to previous exams. Mild plaque right internal carotid artery NASCET criteria used. Mild 0-49% stenosis Moderate 50-69% stenosis Severe 70-99% stenosis
--- NOTE | 2021-08-09 16:10 | P.HP ---
Certification for Inpatient Patient admitted to: Observation With expected LOS: <2 Midnights Practitioner: I am a practitioner with admitting privileges, knowledge of patient current condition, hospital course, and medical plan of care. Services: Services provided to patient in accordance with Admission requirements found in Title 42 Section 412.3 of the Code of Federal Regulations Patient History Date of Service: 08/09/21 Reason for admission: Throat and chest pain History of Present Illness: 75-year-old morbidly obese man with a history of hypertension and hyperlipidemia presented to the emergency department with a complaint of pain in the throat area extending into the anterior upper portion of the chest. Patient described a sharp pain of onset this morning. He denied any sore throat. He denied any nasal congestion or upper respiratory infection. Patient denied any fever. Initial troponin in the ED is negative. CT soft tissue of the neck reviewed and is unremarkable. EKG shows sinus rhythm, no ischemic changes. Chest x-ray is unremarkable. ED physician wishes to hospitalize patient for ACS rule out. Allergies No Known Allergies Allergy (Verified 11/01/16 16:50) Home Medications: Gabapentin [Neurontin] 300 mg PO BID 11/01/16 Metoprolol Alexander/Hydrochlorothiaz [Metoprolol ER-Hctz 25-12.5 mg] 25 mg PO DAILY 11/01/16 Acetaminophen [Tylenol*] 650 mg PO Q4H PRN tab 11/09/16 Amitriptyline [Elavil*] 50 mg PO BEDTIME #30 tab 11/09/16 Apixaban [Eliquis *] 2.5 mg PO BID #60 11/09/16 Atorvastatin Calcium [Lipitor*] 20 mg PO BEDTIME #30 tab 11/09/16 Baclofen [Lioresal*] 20 mg PO BID #60 tab 11/09/16 Docusate [Colace Cap*] 100 mg PO BID #60 cap 11/09/16 Hydrocodone 10/APAP 325 [[place] 10/325*] 1 tab PO Q4H PRN #120 tab 11/09/16 Magnesium Oxide [Mag 0X*] 400 mg PO DAILY #30 tab 11/09/16 Multivit,Ther Iron,Ca,FA & Min [Centrum Tablet*] 1 tab PO DAILY #30 tab 11/09/16 Pantoprazole [Protonix Tab*] 40 mg PO DAILYAC #30 tab 11/09/16 - Past Medical/Surgical History Diabetic: No -: CAD -: OSTEOARTHRITIS -: SPINAL STENOSIS -: DEPRESSION -: HTN -: HYPERLIPIDEMIA -: lumbar fussion -: laminectomy - Family History Sister -: Other (see notes) Notes: high cholesterol - Social History Smoking Status: Never smoker Alcohol use: Yes CD- Drugs: No Caffeine use: Yes Review of Systems Other: Except as documented, all other systems reviewed and negative. Physical Examination - Physical Exam General: Alert, Oriented x3, Obese (Morbidly obese) HEENT: Normocephalic, Mucous membr. moist/pink, Sclerae nonicteric Neck: Supple, JVD not distended, Other (No pharyngeal exudate.) Respiratory: Clear to auscultation bilaterally, Normal air movement Cardiovascular: No edema, Regular rate/rhythm, Normal S1 S2 Capillary refill: <2 Seconds Gastrointestinal: Normal bowel sounds, Soft and benign, Non-distended, No tenderness Musculoskeletal: No swelling Integumentary: No rashes, No erythema Neurological: Normal speech, Normal strength at 5/5 x4 extr, Cranial nerves 3-12 intact Lymphatics: No axilla or inguinal lymphadenopathy - Studies Laboratory Data (last 24 hrs) 08/09/21 12:30: Triglycerides 120, Cholesterol 124, HDL Cholesterol 40, Cholesterol/HDL Ratio 3.10, Lipase 123 08/09/21 12:30: PT 12.7 H, INR 1.10 08/09/21 12:30: WBC 5.10, Hgb 15.5, Hct 47.6, Plt Count 227 08/09/21 12:30: Sodium 144, Potassium 4.4, BUN 18, Creatinine 1.38 H, Glucose 147 H, Magnesium 2.5 H, Total Bilirubin 0.6, AST 14 L, ALT 19, Alkaline Phosphatase 88 Assessment and Plan - Problems (Diagnosis) (1) Chest pain Current Visit: Yes Status: Acute (2) Throat pain Current Visit: Yes Status: Acute (3) Hypertension Current Visit: Yes Status: Acute (4) Hyperlipidemia Current Visit: Yes Status: Acute (5) Morbid obesity Current Visit: Yes Status: Acute - Plan Place patient under observation. Trend troponin We will put him on aspirin. Continue home home medications for hypertension and hyperlipidemia Check lipid profile Pain management as needed. Consider ENT consult if pain persist. Patient has renal insufficiency-unknown most recent baseline. Last recorded creatinine in 2017 was normal. Monitor renal function.. - Advance Directives Does patient have a Living Will: No Does patient have a Durable POA for Healthcare: No
[2021-08-09 18:28] LABS: Urine Blood 1+ (Negative); Urine Glucose Negative (Negative); Urine Protein Trace (Negative)
[2021-08-09] MEDS ORDERED: MORPHINE 4 MG/ML SYR IV PRN (20:59)
[2021-08-09] MEDS ORDERED: NITROGLYCERIN 0.4 MG/TAB SL PRN (20:59)
[2021-08-09] MEDS: ATORVASTATIN 10 MG TAB PO SCH (22:37)
[2021-08-09] MEDS: GABAPENTIN 300 MG CAP PO SCH (22:38)
[2021-08-09 23:01] LABS: Troponin High Sensitivity 5675.1 pg/mL (<58.9)
[2021-08-09 23:44] VITALS: BMI 38.0
[2021-08-09] MEDS ORDERED: HEPARIN/D5W 25,000 UNIT/500 ML BAG IV SCH (23:45)
[2021-08-10 04:15] LABS: Absolute Lymphocytes (CBC) 0.9 K/uL (0.7-4.9); Hematocrit 42.7 % (39.6-49.0); Lymphocytes % 16.4 % (15.3-44.8); MPV 7.9 fL (7.6-11.3); RBC Red Blood Cell Count 4.58 M/uL (4.33-5.43)
[2021-08-10 04:35] LABS: Potassium 3.8 mmol/L (3.5-5.1)
--- NOTE | 2021-08-10 06:12 | P.PN ---
Date of Service: 08/10/21 Subjective: Denied any further pain since admission Initially felt like he did not have a heart attack, as he did not have "chest pain" States he has a cardiac catheterization already scheduled for next week with his practice consultant ROS: 10 point ROS as noted above, otherwise negative Physical exam GEN: Alert, oriented, NAD HEENT: Normal conjunctiva, sclera anicteric CV: Regular rate and rhythm, no edema Pulm: Nonlabored respirations on room air ABD: Soft, nontender, nondistended Neuro: Normal speech, normal affect Problem List NSTEMI Chest pain Hypertension Hyperlipidemia Morbid obesity Patient troponin increased overnight Patient initially reported no longer having any pain since admission, stated he would prefer to follow-up with his practice consultant and undergo cardiac catheterization as already scheduled next week Patient was evaluated by cardiology, and was going to be discharged, however if you begin to have more pain Patient decided to stay for cardiac catheterization Continue heparin drip N.p.o. after midnight for cardiac catheterization tomorrow Continue aspirin, statin, beta-james VTE: Heparin drip Code: Full Dispo: Home, anticipate after cardiac catheterization tomorrow Time Spent Managing Pts Care (In Minutes): 35
[2021-08-10] MEDS: ASPIRIN EC 81 MG TAB PO SCH (08:35)
[2021-08-10] MEDS: hydroCHLOROthiazide 12.5 MG CAP PO SCH ×2 (08:35→20:51)
[2021-08-10] MEDS: ATORVASTATIN 10 MG TAB PO SCH (08:35)
[2021-08-10] MEDS: METOPROLOL XL 25 MG TAB PO SCH ×2 (08:35→20:51)
[2021-08-10] MEDS: GABAPENTIN 300 MG CAP PO SCH ×2 (08:35→20:50)
--- NOTE | 2021-08-10 09:12 | EKG ---
Test Date: 2021-08-09 Test Time: 12:25:53 Equal Opportunity Assistant: ENEDINA MEASUREMENT RESULTS: Intervals: Rate: 69 MS: 158 QRSD: 94 QT: 384 QTc: 411 [place]: P: 77 MS: 158 QRS: 55 T: 49 INTERPRETIVE STATEMENTS: Sinus rhythm with marked sinus arrhythmia Otherwise normal ECG Compared to ECG 03/23/2005 10:08:00 Sinus bradycardia no longer present Electronically Signed On 08-10-21 09:09:22 [employer] HISTORY COLLECTIONS CURATOR by Joaquin Nick
[2021-08-10] MEDS ORDERED: HEPARIN/D5W 25,000 UNIT/500 ML BAG IV SCH (10:08)
--- NOTE | 2021-08-10 13:35 | ECHO ---
HEIGHT: 5 ft 9 in WEIGHT: 257 lb 1.6 oz DATE OF STUDY: 08/10/[address]: Joaquin Nick MD 2-DIMENSIONAL: YES M.MODE: YES DOPPLER: YES COLOR FLOW: YES TDS: NO PORTABLE: NO DEFINITY: NO BUBBLE STUDY: NO DIAGNOSIS: NSTEMI CARDIAC HISTORY: CATHERIZATION: SURGERY: PROSTHETIC VALVE: PACEMAKER: MEASUREMENTS (cm) DIASTOLIC (NORMALS) SYSTOLIC (NORMALS) IVSd 1.1 (0.6-1.2) LA Diam (1.9-4.0) LVEF 50% LVIDd 5.4 (3.5-5.7) LVIDs 4.0 (2.0-3.5) %FS 25% LVPWd 1.4 (0.6-1.2) Ao Diam 3.6 (2.0-3.7) 2 DIMENSIONAL ASSESSMENT: RIGHT ATRIUM: NORMAL LEFT ATRIUM: NORMAL RIGHT VENTRICLE: NORMAL LEFT VENTRICLE: LEFT VENTRICULAR HYPERTROPHY TRICUSPID VALVE: NORMAL MITRAL VALVE: NORMAL PULMONIC VALVE: NORMAL AORTIC VALVE: NORMAL PERICARDIAL EFFUSION: NONE AORTIC ROOT: NORMAL LEFT VENTRICULAR WALL MOTION: NORMAL DOPPLER/COLOR FLOW: MILD TRICUSPID REGURGITATION. COMMENTS: NORMAL LEFT VENTRICULAR FUNCTION. MILD TRICUSPID REGURGITATION. NORMAL RIGHT VENTRICULAR SYSTOLIC PRESSURE. LEFT VENTRICULAR HYPERTROPHY. TECHNOLOGIST: Christen WILLOUGHBY
[2021-08-10] MEDS ORDERED: HEPARIN/D5W 25,000 UNIT/500 ML BAG IV PRN (19:00)
[2021-08-11 03:18] LABS: Hematocrit 42.8 % (39.6-49.0); RBC Red Blood Cell Count 4.61 M/uL (4.33-5.43)
[2021-08-11 03:29] LABS: Magnesium 2.5 mg/dL (1.8-2.4); Potassium 3.9 mmol/L (3.5-5.1)
[2021-08-11] MEDS: METOPROLOL XL 25 MG TAB PO SCH (06:16)
[2021-08-11] MEDS: ASPIRIN EC 81 MG TAB PO SCH (06:16)
[2021-08-11] MEDS ORDERED: HEPA 1000U/500MLS 1,000 UNIT/500 ML BAG IV ONE (06:46)
[2021-08-11] MEDS ORDERED: LIDOCAINE 1% 20 ML MDV ONE ×2 (06:46→07:34)
[2021-08-11] MEDS ORDERED: FENTANYL CITR 100 MCG/2 ML ONE (06:49)
[2021-08-11] MEDS ORDERED: ATROPINE SULF 1 MG/10 ML SYR IV ONE (06:50)
[2021-08-11] MEDS ORDERED: MIDAZOLAM HCL 2 MG/2 ML INJ ONE ×2 (06:50→07:33)
[2021-08-11] MEDS ORDERED: NA CHLORIDE 0.9% 0 ML ONE (06:50)
[2021-08-11] MEDS ORDERED: NITROGLYCERIN/D5W 50 MG/250 ML BTL IV ONE (06:53)
[2021-08-11] MEDS ORDERED: NITROGLYCERIN/D5W 0 MG/0 ML BTL IV ONE (06:54)
[2021-08-11] MEDS ORDERED: NITROGLYCERIN 100 MCG/ML SYR (for cath lab use only) IV ONE (06:54)
[2021-08-11] MEDS ORDERED: NA CHLORIDE 0.9% 500 ML ONE (07:07)
[2021-08-11] MEDS: ATORVASTATIN 10 MG TAB PO SCH (09:00)
[2021-08-11] MEDS: GABAPENTIN 300 MG CAP PO SCH (09:00)
[2021-08-11] MEDS: hydroCHLOROthiazide 12.5 MG CAP PO SCH (09:00)
[2021-08-11 12:37] VITALS: O2SAT 96
[2021-08-11 13:27] VITALS: BP 152/67; TEMP 97.5
--- NOTE | 2021-08-11 18:21 | P.DS ---
Admission Date: 08/10/21 Discharge Date: 08/11/21 Disposition: ROUTINE DISCHARGE Discharge Condition: GOOD Reason for Admission: Throat and chest pain Consultations: Cardiology Procedures: Problem List NSTEMI Chest pain Hypertension Hyperlipidemia Morbid obesity Brief History of Present Illness: 75-year-old morbidly obese man with a history of hypertension and hyperlipidemia presented to the emergency department with a complaint of pain in the throat area extending into the anterior upper portion of the chest. Patient described a sharp pain of onset this morning. He denied any sore throat. He denied any nasal congestion or upper respiratory infection. Patient denied any fever. Initial troponin in the ED is negative. CT soft tissue of the neck reviewed and is unremarkable. EKG shows sinus rhythm, no ischemic changes. Chest x-ray is unremarkable. ED physician wishes to hospitalize patient for ACS rule out. Hospital Course: Patient was found to have mildly elevated troponins. Cardiology was consulted. Patient remained pain free since admission and troponin trended down. He underwent cardiac catheterization which did not reveal any significant stenosis. Did not need any intervention. Patient is deemed stable for discharge home and no further workup per Cardiology. Follow up with his Aco Coordinator as scheduled. Vital Signs/Physical Exam: Temp Pulse Resp BP Pulse Ox 97.5 F 72 20 152/67 H 96 08/11/21 12:00 08/11/21 12:00 08/11/21 12:00 08/11/21 12:00 08/11/21 12:00 Physical exam GEN: Alert, oriented, NAD HEENT: Normal conjunctiva, sclera anicteric CV: Regular rate and rhythm, no edema Pulm: Nonlabored respirations on room air ABD: Soft, nontender, nondistended Neuro: Normal speech, normal affect Laboratory Data at Discharge: WBC 4.80 K/uL (4.3-10.9) D 08/11/21 03:08 Hgb 14.0 g/dL (13.6-17.9) 08/11/21 03:08 Hct 42.8 % (39.6-49.0) 08/11/21 03:08 Plt Count 215 K/uL (152-406) 08/11/21 03:08 PT 12.7 SECONDS (9.5-12.5) H 08/09/21 12:30 INR 1.10 08/09/21 12:30 APTT Cancelled 08/11/21 07:10 Sodium 139 mmol/L (136-145) 08/11/21 03:08 Potassium 3.9 mmol/L (3.5-5.1) 08/11/21 03:08 BUN 20 mg/dL (7-18) H 08/11/21 03:08 Creatinine 1.29 mg/dL (0.55-1.3) 08/11/21 03:08 Glucose 122 mg/dL (74-106) H 08/11/21 03:08 Magnesium 2.5 mg/dL (1.8-2.4) H 08/11/21 03:08 Total Bilirubin 0.6 mg/dL (0.2-1.0) 08/09/21 12:30 AST 14 U/L (15-37) L 08/09/21 12:30 ALT 19 U/L (12-78) 08/09/21 12:30 Alkaline Phosphatase 88 U/L (45-117) 08/09/21 12:30 Triglycerides 141 mg/dL (<150) 08/09/21 22:22 Cholesterol 115 mg/dL (<200) 08/09/21 22:22 HDL Cholesterol 35 mg/dL (40-60) L 08/09/21 22: Cholesterol/HDL Ratio 3.29 08/09/21 22: Lipase 123 U/L (73-393) 08/09/21 12:30 Home Medications: Gabapentin [Neurontin] 600 mg PO DAILY 11/01/16 Metoprolol Alexander/Hydrochlorothiaz [Metoprolol ER-Hctz 25-12.5 mg] 25 mg PO BID 11/01/16 Pravastatin Sodium 20 mg PO DAILY 08/09/21 Aspirin [Aspirin EC 81 MG] 81 mg PO DAILY 30 Days #30 tablet. 08/10/21 New Medications: Aspirin [Aspirin EC 81 MG] 81 mg PO DAILY 30 Days #30 tablet. Physician Discharge Instructions: Patient was found to have mildly elevated troponins. Cardiology was consulted. Patient remained pain free since admission and troponin trended down. He underwent cardiac catheterization which did not reveal any significant stenosis. Did not need any intervention. Patient is deemed stable for discharge home and no further workup per Cardiology. Follow up with his Aco Coordinator as scheduled. E-script sent to [facility] in [place] Call [phone] for any questions regarding hospital stay Diet: AHA Activity: Ad jennifer Followup: Joseph Teixeira MD [Primary Care Provider] - 1-2 Weeks (call to schedule an appointment ) Time spent managing pt's care (in minutes): 45
== END 2021-08-11 15:02 | disposition home or self-care (01) | DRG 282 ==
LOC: ER 12:05 → ERHOLD 15:57 → 2ND 20:01 → OBSVTOIN 08-10 12:13
PROVIDERS: ADMIT Internal Medicine; ATTEND Hospitalist
DX: I21.4 Non-ST elevation (NSTEMI) myocardial infarction (principal); I10 Essential (primary) hypertension; E78.5 Hyperlipidemia, unspecified; I25.10 Atherosclerotic heart disease of native coronary artery without angina pectoris; E66.01 Morbid (severe) obesity due to excess calories; R07.0 Pain in throat; R77.8 Other specified abnormalities of plasma proteins; Z68.38 Body mass index [BMI] 38.0-38.9, adult; Z79.899 Other long term (current) drug therapy; Z79.01 Long term (current) use of anticoagulants; Z20.822 Contact with and (suspected) exposure to COVID-19; Z79.82 Long term (current) use of aspirin
CPT/HCPCS: 36415; 70491; 71045; 80048; 80061; 80076; 81003; 83690; 83735; 83880; 84484; 85025; 85027; 85610; 85730; 93005; 93306; 93454; 93880; 96372; 96374; 99285; C1760; C1893; C9113; G0378; J0583; J1644; J1650; J2250; J3010; J7040; Q9967; U0003